=== PATIENT | male | born 1975 | race Caucasian/White ===

== ENCOUNTER 2017-07-07 10:01 | Emergency (ER) | payer OTHER ==
[~2017-07-07] VITALS: Ht 170.2 cm; Wt 64.0 kg
[~2017-07-07 10:01] MED LIST: FIORICET PO; HC1C30 TOP; IBUP800T25 PO
[2017-07-07 10:04] VITALS: Ht 170.2 cm; Wt 64.0 kg
[2017-07-07] MEDS ORDERED: KETO120S2 TOP (10:44)
[2017-07-07] MEDS ORDERED: KETOCONAZOLE 2% 15 GM CR TOP ONE (11:00)
--- NOTE | 2017-07-07 12:35 | ERD ---
ER Documentation Chief Complaint Chief Complaint pt bib self with c/o bilatter foot pain HPI 42-year-old man complains of bilateral foot pain and itching, he is homeless and is always walking around the tennis shoes and developed blistering to both heels. He complains of bilateral fungal foot infection. ROS All systems reviewed and are negative except as per history of present illness. Medications Home Meds Active Scripts Ketoconazole* (Ketoconazole*) 2% - 120 Ml Shampoo, 1 APPLIC TOP DAILY, #1 EA WASH HAIR/SCALP AND RINSE OFF Prov:ARLET PARIS MD 07/07/17 Discontinued Scripts Ibuprofen* (Motrin*) 800 Mg Tab, 800 MG PO Q6H Y for PAIN, #30 TAB Prov:GAVIOTA TAY MD 01/30/16 Hydrocortisone* Topical (Hydrocortisone* Topical) 1%-28.35 Gm Cream..g., 1 APPLIC TOP BID Y for ITCHING, #1 TUB Prov:GAVIOTA TAY MD 01/30/16 Acetamin/Butalbital/Caffeine* (Fioricet*) 1 Tab Tab, 1 TAB PO Q4H Y for PAIN LEVEL 1-5, #30 TAB Prov:MINGO VANCE NP 10/19/15 Allergies Allergies: Coded Allergies: No Known Allergy (Unverified , 07/07/17) PMhx/Soc None History of Surgery: No Anesthesia Reaction: No Hx Neurological Disorder: No Hx Respiratory Disorders: No Hx Cardiac Disorders: No Hx Psychiatric Problems: No (SCHIZOEFFECTIVE DISORDER) Hx Miscellaneous Medical Probl: Yes (hyperlipidemia) Hx Alcohol Use: No Hx Substance Use: No Hx Tobacco Use: No Smoking Status: Current every day smoker FmHx Family History: No diabetes Physical Exam Vitals Vital Signs Date Time Temp Pulse Resp B/P Pulse Ox O2 Delivery O2 Flow Rate FiO2 07/07/17 10:04 98.6 94 16 130/70 99 Physical Exam GENERAL: Well-developed, well-nourished, well-hydrated, in no apparent distress , looks nontoxic in appearance HEENT: Moist mucous membranes, pink conjunctiva, no cervical spine tenderness or step-off deformities, no goiter, no jaundice or icterus, extraocular movements intact without pain. No submandibular induration, and no pharyngeal erythema NEURO: Alert and oriented 3, cranial nerves II through XII intact bilaterally, pupils equal round reactive to light, no focal deficits or facial asymmetry, sensation intact distally Strength 5/5 in upper and lower extremities bilaterally CARDIAC: Regular rate and rhythm, no murmurs rubs or gallops LUNGS: Clear bilaterally no wheezing crackles or stridor ABDOMEN: Soft nontender, no guarding, no rigidity, no rebound, no psoas sign no obturator sign. Normoactive bowel sounds SKIN: Warm and dry to touch, diffuse pruritic erythema to the feet and toes bilaterally, no skin induration, there is superficial hematoma blistering to the heels bilaterally EXTREMITIES: No clubbing cyanosis or edema, calves are bilaterally symmetrical, no Homans sign, no popliteal cord sign. Distal pulses equal and bilateral PSYCH: Normal affect without agitation or irritability Results 24 hrs Current Medications Medications (Trade) Dose Ordered Sig/Miles Route PRN Reason Start Time Stop Time Status Last Admin Dose Admin Ketoconazole (Nizoral Cr) 1 applic ONCE ONCE TOP 07/07/17 11:00 07/07/17 11:01 DC 07/07/17 11:06 Procedures/MDM I administered ketoconazole cream to both feet for tinea pedis treatment, he was instructed to use this cream twice a day for the next 3-4 weeks. Patient feels much better at this time, and vital signs are normal, symptoms have improved. I did give strict instructions to return to the ED if symptoms continue or worsen, patient will otherwise follow-up with primary care physician. Patient understood instructions and agreed to plan. Disclaimer: Inadvertent spelling and grammatical errors are likely due to EHR/ dictation software use and do not reflect on the overall quality of patient care. Also, please note that the electronic time recorded on this note does not necessarily reflect the actual time of the patient encounter. Departure Diagnosis: Primary Impression: Tinea pedis Laterality: bilateral Qualified Code: B35.3 - Tinea pedis of both feet Additional Impression: Hematoma Condition: Good Patient Instructions: Athlete'S Foot, Hematoma ARLET PARIS MD Jul 07, 2017 12:35
== END 2017-07-07 11:07 | disposition home or self-care (01) ==
LOC: E/R 10:01
DX: B35.3 Tinea pedis (principal); F17.210 Nicotine dependence, cigarettes, uncomplicated
CPT/HCPCS: 99283

== ENCOUNTER 2017-12-05 14:48 | Emergency (ER) | END 2017-12-06 10:28 ==

== ENCOUNTER 2018-09-30 09:58 | Emergency (ER) | payer OTHER ==
[~2018-09-30] VITALS: Wt 71.1 kg
[~2018-09-30 09:58] MED LIST changes: -FIORICET PO; -HC1C30 TOP; -IBUP800T25 PO; +KETO120S3 TOP
--- NOTE | 2018-09-30 11:48 | PSY ---
Date/Time of Note Date/Time of Note DATE: 09/30/18 TIME: 11:47 Psychiatric Subjective Eval Subjective Evaluation Patient location: emergency Chief Complaint: PT STATES HAS SUICIDAL IDEATIONS, ALSO NASAL CONGESTION Reason for consult: Suicidal idaetion History of present illness This is a 43 year old male who has presented periodically to this ED with complaints of suicidal ideation. He has been homeless. He has been treated for symptoms of depression. He denies having a history of drug or alcohol dependence/abuse. He denies having a specific plan. He does report feeling depressed helpless and hopeless. He is seeking outpatient treatment and assistance to obtain psychiatric disability. Past psychiatric history The patient has been homeless for several years. He has been treated for schizoaffective disorder and bipolar disorder. His most recent presentation was November 2017. He presents today with complaints of suicidal ideation. He is also seeking a referral to participate in an outpatient treatment program. He denies delusions or hallucinations. He denies any specific intent. Hospitalization: yes Family History He said, "Everybody". When I asked him to be more specific he looked at me as if I was not listening and said, "Everybody". Medical history Problems Medical Problems: (1) Bedbug bite Status: Acute (2) Headache Status: Acute (3) Hematoma Status: Acute (4) Hematoma Status: Acute (5) Normal physical exam Status: Acute (6) Psychological disorder Status: Acute (7) Schizoaffective disorder Status: Acute (8) Suicidal ideation Status: Acute (9) Tinea pedis Status: Acute (10) Tinea pedis Status: Acute Allergies: Coded Allergies: No Known Allergy (Unverified , 07/07/17) Substance Abuse Substance use: No known substance abuse Social History Marital status: single Level of education: AA in general ed DPA/Conservatorship: No Occupation/Assisted: unemployed for 10 years. Psychiatric Objective Eval Review of Systems: Review of Systems: Applicable Constitutional: Normal Eyes: Normal ENT: Normal Neck: Normal Respiratory: Normal Chest/Breast: Normal Cardiovascular: Normal GI: Normal Genitourinary: Normal Skin: Normal Lymphatic: Normal Musculoskeletal: Normal Neurological: Normal Physical Examination: Physical Examination: Applicable Sleep: Adequate Appetite: Adequate Energy: Adequate Interest: Adequate Mental Status Examination: Appearance: Disheveled Eye Contact: Fair Psychomotor Activity: Normal Behavior: Cooperative, Guarded Speech: Clear AFFECT: Flat Mood: Depressed, Anxious Though Process: Linear, Loose, Illogical, Other Thought Content: Normal Suicidal: Yes Homicidal: No On 72 hour hold: No Orientation: x4 Cognition: Alert Insight: Impared Judgement: Intact Attention Span: Intact Laboratory Results Laboratory Tests Test 09/30/18 11:02 White Blood Count 6.2 10^3/ul Red Blood Count 4.08 10^6/ul Hemoglobin 13.0 g/dl Hematocrit 37.1 % Mean Corpuscular Volume 90.9 fl Mean Corpuscular Hemoglobin 31.9 pg Mean Corpuscular Hemoglobin Concent 35.0 g/dl Red Cell Distribution Width 12.1 % Platelet Count 289 10^3/UL Mean Platelet Volume 8.8 fl Immature Granulocytes % 0.200 % Neutrophils % 58.8 % Lymphocytes % 28.0 % Monocytes % 11.4 % Eosinophils % 1.1 % Basophils % 0.5 % Nucleated Red Blood Cells % 0.0 /100WBC Immature Granulocytes # 0.010 10^3/ul Neutrophils # 3.7 10^3/ul Lymphocytes # 1.8 10^3/ul Monocytes # 0.7 10^3/ul Eosinophils # 0.1 10^3/ul Basophils # 0.0 10^3/ul Nucleated Red Blood Cells # 0.0 10^3/ul Urine Color YELLOW Urine Clarity CLOUDY Urine pH 5.0 Urine Specific [place] 1.027 Urine Ketones TRACE mg/dL Urine Nitrite NEGATIVE mg/dL Urine Bilirubin NEGATIVE mg/dL Urine Urobilinogen 2+ mg/dL Urine Leukocyte Esterase NEGATIVE [place]/ul Urine Microscopic RBC 3 /HPF Urine Microscopic WBC 4 /HPF Urine Mucus MANY /HPF Urine Hemoglobin NEGATIVE mg/dL Urine Glucose NEGATIVE mg/dL Urine Total Protein NEGATIVE mg/dl Sodium Level 140 mmol/L Potassium Level 3.8 mmol/L Chloride Level 103 mmol/L Carbon Dioxide Level 26 mmol/L Anion Gap 11 Blood Urea Nitrogen 14 mg/dl Creatinine 0.73 mg/dl Est Glomerular Filtrat Rate mL/min > 60 mL/min Glucose Level 96 mg/dl Calcium Level 9.2 mg/dl Total Bilirubin 0.1 mg/dl Direct Bilirubin 0.00 mg/dl Indirect Bilirubin 0.1 mg/dl Aspartate Amino Transf (AST/SGOT) 22 IU/L Alanine Aminotransferase (ALT/SGPT) 14 IU/L Alkaline Phosphatase 62 IU/L Total Protein 7.0 g/dl Albumin 4.2 g/dl Globulin 2.80 g/dl Albumin/Globulin Ratio 1.50 Salicylates Level 3.9 mg/dl Acetaminophen Level < 10.0 ug/ml Ethyl Alcohol Level < 10.0 mg/dl Assessment and Plan Assessment/Diagnosis Diagnosis F39 mood disorder nos F29 psychosis nos Recommendation/Plan Medication Management Prozac 40mg daily Olanzapine 5mg po pm. Discharge Disposition: Psychiatric inpatient Legal Status: Voluntary ALONDRA FATIMA MD Sep 30, 2018 11:48
[2018-09-30] MEDS ORDERED: OLANZAPINE (ODT) 5 MG TAB ODT ONE (12:30)
--- NOTE | 2018-09-30 13:05 | ERD ---
ER Documentation Chief Complaint Chief Complaint PT STATES HAS SUICIDAL IDEATIONS, ALSO NASAL CONGESTION HPI Patient is a 43-year-old male with depression and schizoaffective disorder who presents with psychiatric complaints. The patient says that he is "not been seeing a psychiatrist" and that he "missed a psychiatry appointment". However he does not have a psychiatrist. He admits to suicidal ideation and depression. He has not taking his Prozac as he has been instructed to. He wants to get admitted for a 5150. Upon review of old medical records the patient has multiple visits for various complaints. ROS All systems reviewed and are negative except as per history of present illness. Medications Home Meds Active Scripts Ketoconazole* (Ketoconazole*) 2% - 120 Ml Shampoo, 1 APPLIC TOP DAILY, #1 EA WASH HAIR/SCALP AND RINSE OFF Prov:ARLET PARIS MD 07/07/17 Allergies Allergies: Coded Allergies: No Known Allergy (Unverified , 07/07/17) PMhx/Soc History of Surgery: No Anesthesia Reaction: No Hx Neurological Disorder: No Hx Respiratory Disorders: No Hx Cardiac Disorders: No Hx Psychiatric Problems: No (SCHIZOEFFECTIVE DISORDER) Hx Miscellaneous Medical Probl: Yes (hyperlipidemia) Hx Alcohol Use: No Hx Substance Use: No Hx Tobacco Use: Yes Smoking Status: Current some day smoker FmHx Family History: No diabetes Physical Exam Vitals Vital Signs Date Temp Pulse Resp B/P (MAP) Pulse Ox O2 O2 Flow FiO2 Time Delivery Rate 09/30/18 97.6 87 16 112/66 100 10:04 (81) Physical Exam Const: No acute distress Head: Atraumatic Eyes: Normal Conjunctiva ENT: Normal External Ears, Nose and Mouth. Neck: Full range of motion. No meningismus. Resp: Clear to auscultation bilaterally Cardio: Regular rate and rhythm, no murmurs Abd: Soft, non tender, non distended. Normal bowel sounds Skin: No petechiae or rashes Back: No midline or flank tenderness Ext: No cyanosis, or edema Neur: Awake and alert Psych: Flight of ideas, positive for suicidal ideation, requesting 5150 hold Result Diagram: 09/30/18 1102 09/30/18 1102 Results 24 hrs Laboratory Tests Test 09/30/18 11:02 White Blood Count 6.2 10^3/ul Red Blood Count 4.08 10^6/ul Hemoglobin 13.0 g/dl Hematocrit 37.1 % Mean Corpuscular Volume 90.9 fl Mean Corpuscular Hemoglobin 31.9 pg Mean Corpuscular Hemoglobin Concent 35.0 g/dl Red Cell Distribution Width 12.1 % Platelet Count 289 10^3/UL Mean Platelet Volume 8.8 fl Immature Granulocytes % 0.200 % Neutrophils % 58.8 % Lymphocytes % 28.0 % Monocytes % 11.4 % Eosinophils % 1.1 % Basophils % 0.5 % Nucleated Red Blood Cells % 0.0 /100WBC Immature Granulocytes # 0.010 10^3/ul Neutrophils # 3.7 10^3/ul Lymphocytes # 1.8 10^3/ul Monocytes # 0.7 10^3/ul Eosinophils # 0.1 10^3/ul Basophils # 0.0 10^3/ul Nucleated Red Blood Cells # 0.0 10^3/ul Urine Color YELLOW Urine Clarity CLOUDY Urine pH 5.0 Urine Specific [place] 1.027 Urine Ketones TRACE mg/dL Urine Nitrite NEGATIVE mg/dL Urine Bilirubin NEGATIVE mg/dL Urine Urobilinogen 2+ mg/dL Urine Leukocyte Esterase NEGATIVE [place]/ul Urine Microscopic RBC 3 /HPF Urine Microscopic WBC 4 /HPF Urine Mucus MANY /HPF Urine Hemoglobin NEGATIVE mg/dL Urine Glucose NEGATIVE mg/dL Urine Total Protein NEGATIVE mg/dl Sodium Level 140 mmol/L Potassium Level 3.8 mmol/L Chloride Level 103 mmol/L Carbon Dioxide Level 26 mmol/L Anion Gap 11 Blood Urea Nitrogen 14 mg/dl Creatinine 0.73 mg/dl Est Glomerular Filtrat Rate mL/min > 60 mL/min Glucose Level 96 mg/dl Calcium Level 9.2 mg/dl Total Bilirubin 0.1 mg/dl Direct Bilirubin 0.00 mg/dl Indirect Bilirubin 0.1 mg/dl Aspartate Amino Transf (AST/SGOT) 22 IU/L Alanine Aminotransferase (ALT/SGPT) 14 IU/L Alkaline Phosphatase 62 IU/L Total Protein 7.0 g/dl Albumin 4.2 g/dl Globulin 2.80 g/dl Albumin/Globulin Ratio 1.50 Salicylates Level 3.9 mg/dl Urine Opiates Screen Negative Acetaminophen Level < 10.0 ug/ml Urine Barbiturates Negative Urine Amphetamines Screen Negative Urine Benzodiazepines Screen Negative Urine Cocaine Screen Negative Urine Cannabinoids Negative Ethyl Alcohol Level < 10.0 mg/dl Current Medications Medications Dose Sig/Miles Start Time Status Last (Trade) Ordered Route PRN Stop Time Admin Dose Reason Admin Fluoxetine 40 mg DAILY PO 09/30/18 HCl 11:30 (Prozac) Olanzapine 5 mg ONCE ONCE 09/30/18 DC (Zyprexa ODT 12:30 Zydis) 09/30/18 12:31 Procedures/MDM Patient is a 43-year-old male presents with acute psychosis and suicidal ideation. He is willing to go voluntarily psych. The patient was seen by psychiatry who recommended a voluntary psych admission. The patient has been medically cleared with laboratory studies and urine sample. He can return for any worsening symptoms. He will be transferred to another hospital once an accepting facility is found. He was given Prozac and Zyprexa. Departure Diagnosis: Primary Impression: Suicidal ideation Condition: KATHLEEN Boyle MD Sep 30, 2018 13:05
[2018-09-30] MEDS: FLUOXETINE 20 MG CAP PO SCH (13:09)
[2018-09-30] MEDS ORDERED: FLUO20CA22 PO (23:38)
[2018-09-30] MEDS ORDERED: IBUP-1542 PO (23:38)
[2018-09-30] MEDS ORDERED: FLUT16SP17 NASAL (23:38)
[2018-10-01] MEDS ORDERED: ACETAMINOPHEN 325 MG TAB PO ONE (05:30)
[2018-10-01] MEDS: FLUOXETINE 20 MG CAP PO SCH (10:15)
--- NOTE | 2018-10-01 10:21 | PSY ---
Date/Time of Note Date/Time of Note DATE: 10/01/18 TIME: 10:16 Psychiatric Subjective Eval Subjective Evaluation Patient location: emergency Chief Complaint: PT STATES HAS SUICIDAL IDEATIONS, ALSO NASAL CONGESTION Reason for consult: SI History of present illness 43 yo homeless amle with hx schizophrenia presented to ED with vague SI asking to get referred to outpt mental health. Ptwas seen by Dr Ham who recommended voluntary admission. Pt says he came here to a get a referral to an outpt program. "It is not an emergency". He also says he wants to see a SW "to get a job:. THen asked bout SI he says "a little bit..no, no plan". No HI. + AH "chatter". No VH. Past psychiatric history last inpt was 2 months ago Hospitalization: yes Family History parents Medical history Problems Medical Problems: (1) Bedbug bite Status: Acute (2) Headache Status: Acute (3) Hematoma Status: Acute (4) Hematoma Status: Acute (5) Normal physical exam Status: Acute (6) Psychological disorder Status: Acute (7) Schizoaffective disorder Status: Acute (8) Suicidal ideation Status: Acute (9) Suicidal ideation Status: Acute (10) Tinea pedis Status: Acute (11) Tinea pedis Status: Acute Allergies: Coded Allergies: No Known Allergy (Unverified , 09/30/18) Substance Abuse Substance use: No known substance abuse Social History Marital status: single Level of education: AA in general ed DPA/Conservatorship: No Occupation/Fpc: unemployed for 10 years. Psychiatric Objective Eval Review of Systems: Review of Systems: Not Applicable Mental Status Examination: Appearance: Disheveled Eye Contact: Good Psychomotor Activity: Normal Behavior: Cooperative Speech: Clear AFFECT: Anxious Mood: Appropriate/Full Though Process: Perseverative Thought Content: Hallucinations Suicidal: No Homicidal: No On 72 hour hold: No Orientation: x3 Cognition: Alert Insight: Impared Judgement: Intact Laboratory Results Laboratory Tests Test 09/30/18 11:02 White Blood Count 6.2 10^3/ul Red Blood Count 4.08 10^6/ul Hemoglobin 13.0 g/dl Hematocrit 37.1 % Mean Corpuscular Volume 90.9 fl Mean Corpuscular Hemoglobin 31.9 pg Mean Corpuscular Hemoglobin Concent 35.0 g/dl Red Cell Distribution Width 12.1 % Platelet Count 289 10^3/UL Mean Platelet Volume 8.8 fl Immature Granulocytes % 0.200 % Neutrophils % 58.8 % Lymphocytes % 28.0 % Monocytes % 11.4 % Eosinophils % 1.1 % Basophils % 0.5 % Nucleated Red Blood Cells % 0.0 /100WBC Immature Granulocytes # 0.010 10^3/ul Neutrophils # 3.7 10^3/ul Lymphocytes # 1.8 10^3/ul Monocytes # 0.7 10^3/ul Eosinophils # 0.1 10^3/ul Basophils # 0.0 10^3/ul Nucleated Red Blood Cells # 0.0 10^3/ul Urine Color YELLOW Urine Clarity CLOUDY Urine pH 5.0 Urine Specific [place] 1.027 Urine Ketones TRACE mg/dL Urine Nitrite NEGATIVE mg/dL Urine Bilirubin NEGATIVE mg/dL Urine Urobilinogen 2+ mg/dL Urine Leukocyte Esterase NEGATIVE [place]/ul Urine Microscopic RBC 3 /HPF Urine Microscopic WBC 4 /HPF Urine Mucus MANY /HPF Urine Hemoglobin NEGATIVE mg/dL Urine Glucose NEGATIVE mg/dL Urine Total Protein NEGATIVE mg/dl Sodium Level 140 mmol/L Potassium Level 3.8 mmol/L Chloride Level 103 mmol/L Carbon Dioxide Level 26 mmol/L Anion Gap 11 Blood Urea Nitrogen 14 mg/dl Creatinine 0.73 mg/dl Est Glomerular Filtrat Rate mL/min > 60 mL/min Glucose Level 96 mg/dl Calcium Level 9.2 mg/dl Total Bilirubin 0.1 mg/dl Direct Bilirubin 0.00 mg/dl Indirect Bilirubin 0.1 mg/dl Aspartate Amino Transf (AST/SGOT) 22 IU/L Alanine Aminotransferase (ALT/SGPT) 14 IU/L Alkaline Phosphatase 62 IU/L Total Protein 7.0 g/dl Albumin 4.2 g/dl Globulin 2.80 g/dl Albumin/Globulin Ratio 1.50 Salicylates Level 3.9 mg/dl Urine Opiates Screen Negative Acetaminophen Level < 10.0 ug/ml Urine Barbiturates Negative Urine Amphetamines Screen Negative Urine Benzodiazepines Screen Negative Urine Cocaine Screen Negative Urine Cannabinoids Negative Ethyl Alcohol Level < 10.0 mg/dl Assessment and Plan Assessment/Diagnosis Diagnosis Unspecified psychosis. Recommendation/Plan Medication Management Zyprexa 5 mg Po BID; Lexapro 10 mg poqd Multiple antipsychotics: Yes Discharge Disposition: Community (Other) Legal Status: Release involuntary hold Other NO DTS, DTO, GD. PLEASE REFER TO A LONG TERM AND IOP. CHIVO MOREJON MD Oct 01, 2018 10:21
[2018-10-01] MEDS ORDERED: ESCI10TA PO (12:35)
[2018-10-01] MEDS ORDERED: OLAN5TAB5 PO (12:35)
--- NOTE | 2018-10-01 12:38 | EN ---
Date/Time of Note Date/Time of Note DATE: 10/01/18 TIME: 12:37 ER Progress Note Psychiatric Observation Note: Indication: Suicidal ideation Duration: Greater than 25 hours Family history: As documented in original HPI The patient was observed with serial exams over the above timeframe. The patient continued to be well-appearing, and observation continued without complication. All other needs have been met during emergency department stay. Routine psychiatric medications ordered: [Yes, see EMR] Hold status: Release hold Placement status: Patient to be discharged The patient was reevaluated. He states that occasionally he is having suicidal thoughts but he is not actively suicidal. The patient states the only reason he is here is that he would like to see a psychiatrist on an outpatient basis. The patient does not appear to be in acute danger to himself or others. Patient had a repeat telemetry medicine psychiatry evaluation who recommends discharge. Zyprexa, Lexapro prescriptions provided. Repeat evaluation requisition: Recommendation/Plan Medication Management Zyprexa 5 mg Po BID; Lexapro 10 mg poqd Multiple antipsychotics: Yes Discharge Disposition: Community (Other) Legal Status: Release involuntary hold Other NO DTS, DTO, GD. PLEASE REFER TO A NURSING HOME AND IOP. CHIVO MOREJON MD coke worker has helped arrange this patient for outpatient management. GAVIOTA TAY MD Oct 01, 2018 12:38
[2018-10-01 15:03] VITALS: BP 110/73; PULSE 88; RESP 16
== END 2018-10-01 16:07 | disposition home or self-care (01) ==
LOC: E/R 09:58 → CANBEDREQ 10-01 14:25 → FTE 10-01 16:07
DX: R45.851 Suicidal ideations (principal); F17.210 Nicotine dependence, cigarettes, uncomplicated
CPT/HCPCS: 36415; 80053; 80307; 81001; 85025